=== PATIENT | male | born 1965 | race Caucasian/White ===

== ENCOUNTER 2020-01-25 11:53 | Emergency (ER) | payer MEDICAID, SELFPAY ==
[2020-01-25 11:55] VITALS: BP 171/99; PULSE 90; RESP 16; TEMP 36.8; O2SAT 98; BMI 30.9
--- NOTE | 2020-01-25 12:27 | HMH.EDGENADL ---
ED Disposition Clinical Impression: Perirectal abscess Disposition: Home, Self-Care Condition on Discharge: Fair Instructions: DI for Anal Abscess Additional Instructions: Continue salt water sits baths. Stop taking Bactrim and start Flagyl and Levaquin. See Dr. Solitario in his office on 01/29/2020. Call Tuesday to schedule an appointment. Return to the emergency room if increasingly severe pain, fever greater than 100 degrees. Percocet as needed for pain. Stool softener as prescribed. Additional instructions for CONTROLLED SUBSTANCES: You have been prescribed a medication that is a controlled substance. Controlled substances include pain medications known as opiates and sedative nerve medications known as benzodiazepines. Tramadol, fioricet, and gabapentin are also controlled substances. Some common opiates include: Codeine (such as Tylenol #3) Hydrocodone (Vicodin, Lortab, Lorcet, [place]) Oxycodone (Percocet, Percodan, Oxycodone, Oxy IR) Some common benzodiazepines include: Diazepam (Valium) Lorazepam (Ativan) Alprazolam (Xanax) Clonazepam (Klonopin) Oxazepam (Serax) All of these controlled substances are highly addictive and frequently abused. Misuse can and frequently does lead to addiction as well as overdose and . Medication should be stored in a locked cabinet or other secure storage unit. Do not store the medication in a motor vehicle. Short term supplies, 3 days or less, are prescribed because of the highly addictive nature of the medication. Any of the controlled substance medication NOT taken should be disposed of properly and NOT SAVED. The recommended method of disposing of unused medications is: Place the medicines in a sealable plastic bag. If the medicine is a solid, crush it or add water to dissolve it. Add something undesirable (cat litter, coffee grounds, etc.) Dispose of sealed bag in household trash Do not flush or pour unused medicines down a sink or drain. Controlled substances should not be shared, given away or sold. Because of the addictive nature and frequent abuse, these medications are sometimes stolen. These medications should be kept in a safe place where they cannot be stolen. Do not keep them in your car or purse. Lost or stolen prescriptions for controlled substances WILL NOT BE REFILLED in this emergency department, regardless of whether a police report was filed. Prescriptions: Oxycodone HCl/Acetaminophen [Percocet 5/325mg tablet] 1 tab PO Q6HP PRN #10 tab PRN Reason: Moderate To Severe Pain Transmission Status: Received by [id number] metroNIDAZOLE [Flagyl] 500 mg PO TID #30 tab Transmission Status: Received by [id number] levoFLOXacin [Levaquin 500mg tab] 500 mg PO DAILY #10 tab Transmission Status: Received by [id number] Referrals: Ginette Jara [Primary Care Provider] - Mehrdad Solitario MD [Staff Physician] - - Critical Care Critical Care Time: No Attestation: On 01/25/20, the high probability of a clinically significant, sudden or life threatening deterioration of the following system(s) required my full and direct attention, intervention and personal management. The time I documented below is in addition to time spent performing reported procedures but includes the following listed in this critical care notation. Medical Decision Making - Sudarshan Inquiry Pt receiving controlled substance: Yes Sudarshan was queried for this patient: Yes Reference #:: [id number] Risks and benefits of using a controlled substance: were discussed with pt by me Comment: 1 rx for 12 percocet 10/23/19 Vital Signs: 01/25/20 11:55 01/25/20 13:50 Temperature 98.2 F 98.2 F Temperature Source Oral Oral Pulse Rate 70 Pulse Rate [Right] 90 Respiratory Rate 16 16 Blood Pressure 168/70 H Blood Pressure [Right Arm] 171/99 H Blood Pressure Mean [Right Arm] 123 Blood Pressure Source Automatic Cuff Blood Pressur
--- NOTE | 2020-01-25 12:36 | PC.NURSE ---
Dr. Solitario paged
[2020-01-25 13:50] VITALS: BP 168/70; PULSE 70; RESP 16; TEMP 36.8; O2SAT 98
== END 2020-01-25 13:53 | disposition home or self-care (01) ==
PROVIDERS: Emergency Provider Emergency Medicine; PCP Family Medicine
DX: K61.1 Rectal abscess (principal)
CPT/HCPCS: 99281

== ENCOUNTER → 2020-01-29 14:04 | Outpatient (CLI) | payer MEDICAID, SELFPAY ==
[2020-01-29 14:30] LABS: Basophils % 0.5 % (0.1-2.0); Eosinophils # 0.2 K/mm3 (0.0-0.4); Eosinophils % 2.6 % (0.1-12.0); Hematocrit 45.9 % (42.0-52.0); Hemoglobin 15.8 g/dL (14.1-18.0); Lymphocytes # 1.6 K/mm3 (0.7-4.5); Lymphocytes % 20.4 % (10-50); Mean Corpuscular HGB Conc 34.4 g/dL (31.8-35.4); Mean Corpuscular Hemoglobin 31.4 pg (27.0-31.2); Mean Platelet Volume 8.5 fl (7.4-10.4); Monocytes # 0.3 K/mm3 (0.1-1.0); Monocytes % 3.5 % (1.7-9.3); Neutrophils # 5.7 K/mm3 (1.8-7.8); Platelet Count 291 K/mm3 (142-424); Red Blood Count 5.04 M/mm3 (4.60-6.20); Red Cell Distribution Width 13.6 % (11.5-17.5); White Blood Count 7.8 K/mm3 (4.8-10.8)
[2020-01-29 15:08] LABS: Anion Gap 13.4 mEq/L (5-15); Blood Urea Nitrogen 13 mg/dl (9-20); Calcium 9.1 mg/dl (8.4-10.2); Carbon Dioxide 27 mmol/L (22.0-30.0); Chloride 104 mmol/L (98-107); Estimated Glomerular Filt Rate 101 ml/min (>60); GFR (African American) 122 ML/MIN (>60); Glucose 97 mg/dl (74-100); Potassium 4.4 mmoL/L (3.5-5.1); Sodium 140 mmol/L (136-145)
[2020-01-29 17:37] LABS: Coronavirus 19 IgG Antibody Negative (Negative); Coronavirus 19 IgM Antibody Negative (Negative)
== END ==
PROVIDERS: Visit Provider Surgery
DX: Z01.818 Encounter for other preprocedural examination (principal); K61.1 Rectal abscess
CPT/HCPCS: 36415; 80048; 85025; 86328

== ENCOUNTER 2020-01-31 09:41 | Day surgery (SDC) | payer MEDICAID, SELFPAY ==
[2020-01-29 12:40] VITALS: BMI 30.9
[2020-01-31] VITALS (11 sets, daily range): BP systolic 105–136; BP diastolic 64–85; PULSE 63–75; RESP 12–18; TEMP 36.4–36.8; O2SAT 94–97
--- NOTE | 2020-01-31 10:33 | ECG_ITS ---
APPROVED REPORT Exam: Resting ECG HR:69 bpm ECG Measurements Heart Rate 69 AXES DE 184 P 53 QRSd 104 QRS 52 QT 376 T 65 QTc 402 <Conclusion> Normal sinus rhythm Incomplete right bundle branch block Borderline ECG Electronically signed by : Flex Cam, 02/01/2020 07:53:19
--- NOTE | 2020-01-31 10:52 | P.PN_ITS ---
[facility] Anesthesia Checklist - Patient Identification Patient Identification: Arm Band - Structural Data Admitted From: Home Planned Operative Procedure/s: I&D perianal abscess Consent for Planned Operative Procedure(s) Verified: Yes Verified Documents: Surgical Consent, History and Physical - NPO Status Verified Time NPO: 00:00 - Additional verifications Anesthesia Reactions: No Hx Blood Transfusions: No Blood Transfusion Reaction: No - Airway Assessment C-Spine Mobility Assessed: Yes (mp2) TMJ Mobility Assessed: Yes Dentition: Good Dentition - Neurological Assessment Level of Consciousness: Awake, Alert - Anesthesia Plan Anesthesia Risk discussed: Yes Anesthesia Plan: Verified ASA Class: II Anesthesia Type: General [facility] History I have reviewed the patient's past medical history: Yes Medical History: Reports:: Palpitations Denies:: Cancer, Diabetes Mellitus Type 1, Diabetes Mellitus Type 2, Internal Pacemaker, MRSA, Seizures *Have you ever received a pneumonia vaccine?: No *Have you received a flu vaccine this season?: Yes Other Medical History: Denies: Blood Transfusion Reaction Anesthesia experience/problems:: nac Laterality Cases: Left: Arthroscopy Shoulder Other Surgeries: Yes: Other (C7 replacement, Brain surgery). No: Pacemaker Amputation: Yes Fractures: Yes - *Social History Last grade of school completed: 9th or 10th Smoking Status: Current every day smoker Tobacco Type: cigarettes # Packs/Day (cigarettes): 1 #Yrs smoked (if former smoker): 30 Alcohol Intake: current Alcohol Intake Frequency:: a few times a month Substance Use Type: denies use *Occupational Status:: employed Housing: house Household Members: significant other, children *Travel in the last 8 weeks: None Family Hx:: No significant family history
--- NOTE | 2020-01-31 12:57 | P.OP_ITS ---
Date of procedure: 01/31/20 Pre-op Diagnosis:: Left perianal/ischiorectal fossa abscess Post-op Diagnosis:: Same Procedure performed:: Incision and drainage of left perianal/ischiorectal abscess. Surgeon:: Mehrdad Solitario MD PUBLIC HEALTH TRAINING ASSISTANT:: Shaji Bello Anesthesia: LMA Estimated blood loss (mL): 10 Operative findings:: Left perianal/ischiorectal induration with central fluctuance and small amount of drainage. Operative note:: After informed consent was obtained the patient was taken to the operating room and placed in the supine position. General anesthesia with laryngeal mask airway was achieved. The patient was then transferred to the left lateral decubitus position. The perianal/buttock region was prepped and draped in a sterile fashion. After infiltration local anesthetic an elliptical incision was made around the area of central fluctuance along the left ischiorectal region. The underlying cavity was completely evacuated of fluid as a small amount of severely indurated tissue was excised. Wound was packed open with Kerlix after electrocautery was utilized to achieve hemostasis. Entire region including the Curlex packing was then infiltrated with 1% lidocaine. Dressings were applied and the patient was transferred to recovery in stable condition after removal of his laryngeal mask airway. Condition: stable Disposition: PACU Specimens:: None Complications:: no immediate
--- NOTE | 2020-01-31 13:01 | P.PN_ITS ---
[facility] Anesthesia Record Part I Intake, IV Amount: 1,000 Estimated blood loss (mL): 0 Urine output (mL): 0 Blood Pressure: 105/64 SaO2: 94 Pulse Rate: 63 Respiratory Rate: 12 Temperature: 97.5 F Patient is:: Drowsy, Oral/Nasal airway, Stable Stable to PACU at:: 13:00
--- NOTE | 2020-01-31 20:23 | P.PN_ITS ---
[facility] Anesthesia Record Part II Discharge Time: 13:30 Destination: Surgical Day Care (OP Surgery) PACU nurse assessment reviewed?: Yes Patient Condition:: Good Anesthesia Complications:: None Swallowing reflex intact?: Yes Cyanosis?: No Blood Pressure: 126/85 Pulse Rate: 67 Temperature: 97.5 F Mental Status: Alert & Oriented Pain level:: 5 Nausea and/or vomitting:: None Intake, IV Amount: 0
== END 2020-01-31 14:01 | disposition home or self-care (01) ==
LOC: OR 09:42
PROVIDERS: PCP Family Medicine; Visit Provider Surgery
PROC: (CPT 10060; principal; 2020-01-31 11:00)
DX: K61.0 Anal abscess (principal); R00.2 Palpitations; Z79.899 Other long term (current) drug therapy; Z88.6 Allergy status to analgesic agent; Z87.39 Personal history of other diseases of the musculoskeletal system and connective tissue; Z72.0 Tobacco use
CPT/HCPCS: 10060; 93005; 96374; J1335; J2405

== ENCOUNTER 2020-02-03 21:55 | Emergency (ER) | payer MEDICAID, SELFPAY ==
[2020-02-03 22:17] VITALS: BP 112/74; PULSE 75; RESP 14; TEMP 36.9; O2SAT 97; BMI 30.9
[2020-02-03 22:58] VITALS: BP 114/66; PULSE 72; RESP 15; O2SAT 97
[2020-02-03 23:33] VITALS: BP 112/56; PULSE 70; RESP 15; O2SAT 97
--- NOTE | 2020-02-03 23:52 | HMH.EDRECH ---
ED Disposition Clinical Impression: Encounter for wound re-check, Perirectal abscess Disposition: Home, Self-Care Condition on Discharge: Good Additional Instructions: call surg in am for follow up Referrals: Ginette Jara [Primary Care Provider] - - Critical Care Critical Care Time: No Attestation: On 02/03/20, the high probability of a clinically significant, sudden or life threatening deterioration of the following system(s) required my full and direct attention, intervention and personal management. The time I documented below is in addition to time spent performing reported procedures but includes the following listed in this critical care notation. Medical Decision Making - Medical Records Medical records reviewed: Yes: I reviewed the patient's medical records. - Sudarshan Inquiry Pt receiving controlled substance: No Vital Signs: 02/03/20 22:17 02/03/20 22:58 02/03/20 23:33 Temperature 98.4 F Temperature Source Oral Pulse Rate [Right Brachial] 75 72 70 Respiratory Rate 14 15 15 Blood Pressure [Right Arm] 112/74 114/66 112/56 L Blood Pressure Mean [Right Arm] 86 82 74 Blood Pressure Source [Right Arm] Automatic Cuff Automatic Cuff Blood Pressure Position [Right Arm] Sitting Sitting 02 Sat by Pulse Oximetry 97 97 97 Oxygen Delivery Method Room Air Nasal Cannula Room Air - Physician Consults Physician Consulted: lidia Reason -: Pt condition Recheck HPI - General Chief Complaint: Recheck/Abnormal Lab/Rx Stated Complaint: Surg 0813 Left butt cyst .Infecton Time Seen by Provider: 02/03/20 23:45 Mode of Arrival: Ambulatory Source of Information: Patient, Significant Other, Medical Record Limitations: No Limitations Description of Symptoms (Recalled from ER Triage Doc. by RN): Patient reports he had a cyst removed by Dr. Santiago on . Patient reports his has been doing wet to dry dressing changes daily. Patient reports today he has had some increased pain and the noticed some discolored discharged from the sight. Patient has an appt to follow up with Dr. Santiago on Tuesday. - History of Present Illness HPI narrative: recent i/d with daily packing with no fever but more pain and some exudative changes - MD complaint: wound re-check Initial visit (ago): day(s) Initial visit for: abscess Returns today for: wound recheck Symptoms since prior visit: worsening pain, worsening discharge Associated symptoms: none - Related Data Home Medications Medication Instructions Recorded Confirmed levoFLOXacin [Levaquin 500mg 500 mg PO DAILY 01/29/20 01/31/20 tab] metroNIDAZOLE [Flagyl] 500 mg PO TID 01/29/20 01/31/20 Previous Rx's Medication Instructions Recorded Hydrocod/Acet 5/325 mg [[place] 1 - 2 tab PO Q6HP PRN #17 tab 01/31/20 5/325mg tablet] Allergies Allergy/AdvReac Type Severity Reaction Status Date / Time aspirin Allergy Mild Verified 01/31/20 09:59 [facility] History - Hepatitis A Screen Drug use history?: No High risk sexual behaviors?: No History of sexually transmitted infection?: No Currently employed?: No Childcare worker?: No Do you have indoor plumbing?: Yes Do you have electricity?: Yes Attestation statement:: This patient has been screened for Hepatitis A risk factors. I have reviewed the patient's past medical history: Yes Medical History: Reports:: Palpitations Denies:: Cancer, Diabetes Mellitus Type 1, Diabetes Mellitus Type 2, Internal Pacemaker, MRSA, Seizures Other Medical History: Denies: Blood Transfusion Reaction Laterality Cases: Left: Arthroscopy Shoulder Other Surgeries: Yes: Other (C7 replacement, Brain surgery). No: Pacemaker Amputation: Yes Fractures: Yes Comment: L arm, L leg, R hand x 2, B ankles - Social History Smoking Status: Current every day smoker Tobacco Type: cigarettes # Packs/Day (cigarettes): 1 #Yrs smoked (if former smoker): 30 Alcohol Intake: never Alcohol Intake Frequency:: a few times a
[2020-02-04 00:23] VITALS: BP 112/55; PULSE 73; RESP 15; TEMP 36.9; O2SAT 97
== END 2020-02-04 00:41 | disposition home or self-care (01) ==
PROVIDERS: Emergency Provider Emergency Medicine; PCP Family Medicine
DX: K61.1 Rectal abscess (principal)
CPT/HCPCS: 99282

== ENCOUNTER 2020-04-03 18:49 | Emergency (ER) | payer OTHER, SELFPAY ==
[2020-04-03 18:50] VITALS: BP 125/64; PULSE 64; RESP 16; TEMP 36.9; O2SAT 98; BMI 30.9
--- NOTE | 2020-04-03 19:17 | HMH.EDGENADL ---
ED Disposition Condition on Discharge: Good - Critical Care Critical Care Time: No <Franck Schaeffer - Last Filed: 04/03/20 20:14> <Familia Buckley - Last Filed: 04/03/20 21:31> Clinical Impression: Rectal bleeding Disposition: Home, Self-Care Instructions: DI for Gastrointestinal Bleeding Additional Instructions: see dr neves or pcp for gi consult Referrals: Ginette Jara [Primary Care Provider] - Attestation: On 04/03/20, the high probability of a clinically significant, sudden or life threatening deterioration of the following system(s) required my full and direct attention, intervention and personal management. The time I documented below is in addition to time spent performing reported procedures but includes the following listed in this critical care notation. Medical Decision Making - Sudarshan Inquiry Pt receiving controlled substance: No <Franck Schaeffer - Last Filed: 04/03/20 20:14> - Lab Data Lab results reviewed: Yes: I reviewed the patient's lab results. Result diagrams: 04/03/20 20:28 04/03/20 20:28 - CT Data CT Scan: Abdomen, Pelvis Time Received: 21:[address] Reviewed: Yes: I have viewed the radiologist's interpretation Preliminary Findings: Abnormal (nonspecific ) <Familia Buckley - Last Filed: 04/03/20 21:31> Vital Signs: 04/03/20 18:50 Temperature 98.4 F Temperature Source Oral Pulse Rate [Radial] 64 Respiratory Rate 16 Blood Pressure [Right Arm] 125/64 Blood Pressure Mean [Right Arm] 84 Blood Pressure Position [Right Arm] Sitting 02 Sat by Pulse Oximetry 98 Oxygen Delivery Method Room Air - Lab Data Lab Results 04/03/20 20:28: WBC 6.5, RBC 4.84, Hgb 14.8, Hct 43.4, MCV 89.7, MCH 30.5, MCHC 34.0, RDW 13.7, Plt Count 276, MPV 7.9, Neut % (Auto) 57.6, Lymph % (Auto) 29.3, [place] % (Auto) 6.8, Eos % (Auto) 5.3, Baso % (Auto) 1.0, Neut # (Auto) 3.8, Lymph # (Auto) 1.9, [place] # (Auto) 0.5, Eos # (Auto) 0.4, Baso # (Auto) 0.1 04/03/20 20:28: Sodium 141, Potassium 4.0, Chloride 107, Carbon Dioxide 28, Anion Gap 10.0, BUN 17, Creatinine 0.80, Estimated Creat Clear 160, Estimated GFR 101, Est GFR ( Amer) 122, Glucose 108 H, Calcium 8.6, Total Bilirubin 0.4, AST 41, ALT 56, Alkaline Phosphatase 59, Total Protein 6.4, Albumin 3.9, Globulin 2.5, Albumin/Globulin Ratio 1.6 04/03/20 20:29: C-Reactive Protein 3.9, Amylase 47, Lipase 89 04/03/20 20:29: ESR 4 Orders (Tests/Meds): ORDERS Category Date Time Status CT abdomen pelvis wo con Stat Cat Scan 04/03/20 19:38 Taken Medical Decision Narrative: 8:00 PM: At shift change, I have discussed the patient with Dr. Buckley, who will assume care of the patient at this time. I have discussed all clinical information including history, physical and diagnostic study results. Preliminary diagnoses based on information available at this point have been recorded by me. Controlled substance administration and critical care statement are also preliminary, as of the time of handoff. (Franck Schaeffer) General Adult HPI - General Mode of Arrival: Ambulatory Limitations: No Limitations Description of Symptoms (Recalled from ER Triage Doc. by RN): to ed per pvt car with c/o rectal bleeding x 2 today. states blood fills toliet and has had some clots. denies abd pain, nausea, vomiting. <Franck Schaeffer - Last Filed: 04/03/20 20:14> - General Source of Information: Patient, Spouse, Medical Record <Familia Buckley - Last Filed: 04/03/20 21:31> - General Chief complaint: GI Bleed Stated complaint: bleeding from rectum when going to the bathroom Time Seen by Provider: 04/03/20 19:17 - History of Present Illness HPI narrative: The patient has had bright red rectal bleeding twice today, large amount in the toilet. No clots noted. No abdominal pain, no hematemesis. He had surgery on a perirectal abscess on 01/31/[address] Neves. His says that she check to the area today to make sure it was not a problem from his previo
--- NOTE | 2020-04-03 19:38 | CT_ITS ---
PROCEDURE: CT ABDOMEN PELVIS WO CON CLINICAL INDICATION: rectal bleeding COMPARISON: No exams were available for comparison TECHNIQUE: Axial images obtained with sagittal and coronal reformats. All CT scans at the facility use one or more dose reduction, viz: automated exposure control, ma/kV adjustment per patient size (including targeted exams where dose is matched to indication, i.e. head), or iterative reconstruction technique. FINDINGS: The patient refused IV contrast somewhat decreasing the sensitivity of the exam. LOWER THORAX: Atelectatic changes are present in the lung bases. There is a 2 cm thin-walled cyst in the right lower lobe. ABDOMEN & PELVIS: There are 2, 1 cm hypodensities in the left hepatic lobe nonspecific. The spleen, adrenal glands, and pancreas have an unremarkable unenhanced appearance.. There is a 2 mm nonobstructing stone in the lower pole of the right kidney. No hydronephrosis. No ureteral calculi. No intestinal obstruction or free air. Stomach is mildly distended with ingested material. There is a moderate amount of retained colonic feces. No evidence of appendicitis. No evidence of diverticulitis. No acute bony anomalies. There is skin thickening in the left buttock area medially at the gluteal fold with associated subcutaneous linear density extending to the posterior lateral aspect of the rectum. No soft tissue gas is evident. IMPRESSION: 1. Scattered thickening within medial left buttock at the level of the intergluteal fold with associated subcutaneous linear density extending into the left posterolateral aspect of the rectum with minimal surrounding stranding which may be due to postsurgical scar. Cannot exclude underlying inflammation/infection. No drainable fluid collection. 2. Moderate amount of retained colonic feces. 3. Other nonacute findings as described above. 4. Bibasilar atelectasis. Dictated by: Camron Greenfield MD 04/04/2020 08:33 Camron Greenfield MD in [place] 04/04/2020 08:33
[2020-04-03 20:31] LABS: Basophils # 0.1 K/mm3 (0-0.2); Eosinophils # 0.4 K/mm3 (0.0-0.4); Eosinophils % 5.3 % (0.1-12.0); Hematocrit 43.4 % (42.0-52.0); Hemoglobin 14.8 g/dL (14.1-18.0); Lymphocytes # 1.9 K/mm3 (0.7-4.5); Lymphocytes % 29.3 % (10-50); Mean Corpuscular Hemoglobin 30.5 pg (27.0-31.2); Mean Corpuscular Volume 89.7 fl (80-94); Mean Platelet Volume 7.9 fl (7.4-10.4); Monocytes # 0.5 K/mm3 (0.1-1.0); Monocytes % 6.8 % (1.7-9.3); Neutrophils # 3.8 K/mm3 (1.8-7.8); Neutrophils % 57.6 % (37.0-80.0); Platelet Count 276 K/mm3 (142-424); Red Blood Count 4.84 M/mm3 (4.60-6.20); Red Cell Distribution Width 13.7 % (11.5-17.5); White Blood Count 6.5 K/mm3 (4.8-10.8)
[2020-04-03 20:35] LABS: Chloride 107 mmol/L (98-107); Sodium 141 mmol/L (136-145)
[2020-04-03 20:38] LABS: Alanine Aminotransferase 56 U/L (12-78); Albumin Level 3.9 g/dl (3.5-5.0); Albumin/Globulin Ratio 1.6 (1.1-1.8); Alkaline Phosphatase 59 U/L (38-126); Aspartate Amino Transferase 41 U/L (17-59); Bilirubin,Total 0.4 mg/dl (0.2-1.3); Blood Urea Nitrogen 17 mg/dl (9-20); Carbon Dioxide 28 mmol/L (22.0-30.0); Creatinine Clearance Estimated 160 mL/min (50-200); Estimated Glomerular Filt Rate 101 ml/min (>60); GFR (African American) 122 ML/MIN (>60); Globulin 2.5 g/dL (1.3-3.2); Total Protein,Serum 6.4 g/dl (6.3-8.2)
[2020-04-03 20:39] LABS: Calcium 8.6 mg/dl (8.4-10.2); Glucose 108 mg/dl (74-100)
--- NOTE | 2020-04-03 20:41 | PC.NURSE ---
RAD called and stated pt refused IV contrast due to a previous allergic reaction
[2020-04-03 20:47] LABS: Amylase 47 U/L (30-110); Lipase 89 U/L (23-300)
[2020-04-03 20:53] LABS: C-Reactive Protein 3.9 mg/L (0-4)
[2020-04-03 21:14] LABS: Erythrocyte Sedimentation Rate 4 mm/hr (0-20)
[2020-04-03 21:43] VITALS: BP 131/71; PULSE 67; RESP 16; TEMP 36.7; O2SAT 97
== END 2020-04-03 21:45 | disposition home or self-care (01) ==
PROVIDERS: Emergency Medicine; Emergency Provider Emergency Medicine; PCP Family Medicine
DX: K62.5 Hemorrhage of anus and rectum (principal); F17.210 Nicotine dependence, cigarettes, uncomplicated
CPT/HCPCS: 74176; 80053; 82150; 83690; 85025; 85651; 86140; 99282

== ENCOUNTER 2020-04-04 17:23 | Emergency (ER) | payer OTHER, SELFPAY ==
[2020-04-04 17:24] VITALS: BP 116/69; PULSE 70; RESP 18; TEMP 36.9; O2SAT 97; BMI 31.6
[2020-04-04 18:03] LABS: Basophils % 0.5 % (0.1-2.0); Eosinophils # 0.3 K/mm3 (0.0-0.4); Eosinophils % 3.5 % (0.1-12.0); Hematocrit 47.5 % (42.0-52.0); Hemoglobin 15.3 g/dL (14.1-18.0); Lymphocytes # 1.6 K/mm3 (0.7-4.5); Lymphocytes % 19.8 % (10-50); Mean Corpuscular HGB Conc 32.1 g/dL (31.8-35.4); Mean Corpuscular Hemoglobin 29.5 pg (27.0-31.2); Mean Corpuscular Volume 91.8 fl (80-94); Mean Platelet Volume 9.1 fl (7.4-10.4); Monocytes # 0.6 K/mm3 (0.1-1.0); Monocytes % 7.1 % (1.7-9.3); Neutrophils # 5.7 K/mm3 (1.8-7.8); Neutrophils % 69.1 % (37.0-80.0); Platelet Count 293 K/mm3 (142-424); Red Blood Count 5.18 M/mm3 (4.60-6.20); Red Cell Distribution Width 13.8 % (11.5-17.5); White Blood Count 8.2 K/mm3 (4.8-10.8)
[2020-04-04 18:06] LABS: Chloride 105 mmol/L (98-107); Sodium 140 mmol/L (136-145)
[2020-04-04 18:07] LABS: Potassium 3.9 mmoL/L (3.5-5.1)
[2020-04-04 18:09] LABS: Alanine Aminotransferase 61 U/L (12-78); Alkaline Phosphatase 52 U/L (38-126); Amylase 42 U/L (30-110); Anion Gap 12.9 mEq/L (5-15); Aspartate Amino Transferase 42 U/L (17-59); Bilirubin,Total 0.5 mg/dl (0.2-1.3); Blood Urea Nitrogen 14 mg/dl (9-20); Carbon Dioxide 26 mmol/L (22.0-30.0); Creatinine Clearance Estimated 164 mL/min (50-200); Estimated Glomerular Filt Rate 101 ml/min (>60); GFR (African American) 122 ML/MIN (>60); Glucose 101 mg/dl (74-100); Lipase 63 U/L (23-300)
[2020-04-04 18:10] LABS: Albumin/Globulin Ratio 1.5 (1.1-1.8); Globulin 2.7 g/dL (1.3-3.2); Total Protein,Serum 6.7 g/dl (6.3-8.2)
--- NOTE | 2020-04-04 19:14 | PC.NURSE ---
I assisted Dr Recio with a rectal exam on pt, no bleeding noted at this time.
--- NOTE | 2020-04-04 19:19 | HMH.EDGENADL ---
ED Disposition Clinical Impression: Rectal abnormality Disposition: Home, Self-Care Condition on Discharge: Good Instructions: DI for Gastrointestinal Bleeding Additional Instructions: We have checked a rectal exam today and see no acute bleeding; we also checked labs including CBC and CMP and these are completely within normal limits We want to give you reassurance and please follow-up with Dr. Solitario as originally planned on Tuesday Referrals: Ginette Jara [Primary Care Provider] - Time of Disposition: 19:31 - Critical Care Critical Care Time: No Attestation: On 04/04/20, the high probability of a clinically significant, sudden or life threatening deterioration of the following system(s) required my full and direct attention, intervention and personal management. The time I documented below is in addition to time spent performing reported procedures but includes the following listed in this critical care notation. Medical Decision Making - Medical Records Medical records reviewed: Yes: I reviewed the patient's medical records. MR Comment: 54 year old male here with a complaint of rectal bleeding. He states that when he goes to have a BM there is bright red blood and he wanted to get checked. He was seen here yesterday for the same problem and his labs were normal and d/c home and told to f/o with dr solitario, He does have an appointment with dr Solitario on tuesday, 04/09. The original surgery was to I & D of a cyst in the left buttock. We have checked a rectal exam today and see no acute bleeding we also checked labs including CBC and CMP and these are completely within normal limits patient is being given reassurance being advised to follow-up with Dr. Santiago as originally planned on Tuesday - Sudarshan Inquiry Pt receiving controlled substance: No Vital Signs: 04/04/20 17:24 Temperature 98.4 F Temperature Source Oral Pulse Rate [Right] 70 Respiratory Rate 18 Blood Pressure [Right Arm] 116/69 Blood Pressure Mean [Right Arm] 84 02 Sat by Pulse Oximetry 97 - Lab Data Lab results reviewed: Yes: I reviewed the patient's lab results. Lab Results 04/04/20 17:44: WBC 8.2 D, RBC 5.18, Hgb 15.3, Hct 47.5, MCV 91.8, MCH 29.5, MCHC 32.1, RDW 13.8, Plt Count 293, MPV 9.1, Neut % (Auto) 69.1, Lymph % (Auto) 19.8, [place] % (Auto) 7.1, Eos % (Auto) 3.5, Baso % (Auto) 0.5, Neut # (Auto) 5.7, Lymph # (Auto) 1.6, [place] # (Auto) 0.6, Eos # (Auto) 0.3, Baso # (Auto) 0.0 04/04/20 17:44: Sodium 140, Potassium 3.9, Chloride 105, Carbon Dioxide 26, Anion Gap 12.9, BUN 14, Creatinine 0.80, Estimated Creat Clear 164, Estimated GFR 101, Est GFR ( Amer) 122, Glucose 101 H, Calcium 9.0, Total Bilirubin 0.5, AST 42, ALT 61, Alkaline Phosphatase 52, Total Protein 6.7, Albumin 4.0, Globulin 2.7, Albumin/Globulin Ratio 1.5, Amylase 42 D, Lipase 63 Result diagrams: 04/04/20 17:44 04/04/20 17:44 Orders (Tests/Meds): ORDERS Category Date Time Status Occult Blood,Stool Stat Lab 04/04/20 17:37 Ordered General Adult HPI - General Chief complaint: GI Bleed Stated complaint: Bleeding from rectum Time Seen by Provider: 04/04/20 19:00 Mode of Arrival: Ambulatory Source of Information: Patient, Spouse Limitations: No Limitations Description of Symptoms (Recalled from ER Triage Doc. by RN): Pt was seen here yesterday for rectal bleeding and d/c home and told to f/o with dr solitario, pt back here today for increased rectal bleeding and now has abd pain. Pt states the last time he had a BM it was staright blood. - History of Present Illness HPI narrative: 54 year old male here with a complaint of rectal bleeding. He states that when he goes to have a BM there is bright red blood and he wanted to get checked. He was seen here yesterday for the same problem and his labs were normal and d/c home and told to f/o with dr solitario, He does have an appointment with dr Solitario on tuesday, 04/09. The original surgery was to I
[2020-04-04 19:35] VITALS: BP 123/68; PULSE 75; RESP 16; TEMP 36.8; O2SAT 96
== END 2020-04-04 19:39 | disposition home or self-care (01) ==
PROVIDERS: Emergency Provider Emergency Medicine; PCP Family Medicine
DX: K62.5 Hemorrhage of anus and rectum (principal); R00.2 Palpitations; F17.210 Nicotine dependence, cigarettes, uncomplicated
CPT/HCPCS: 80053; 82150; 83690; 85025; 99282

== ENCOUNTER → 2020-04-15 13:35 | Outpatient (CLI) | payer OTHER, SELFPAY ==
[2020-04-15 15:29] LABS: Coronavirus 19 IgG Antibody Negative (Negative); Coronavirus 19 IgM Antibody Negative (Negative)
== END ==
PROVIDERS: Visit Provider Surgery
DX: Z01.818 Encounter for other preprocedural examination (principal); Z12.11 Encounter for screening for malignant neoplasm of colon
CPT/HCPCS: 36415; 86328

== ENCOUNTER 2020-04-17 10:10 | Day surgery (SDC) | payer OTHER, SELFPAY ==
[2020-04-17 10:23] VITALS: BMI 31.6
[2020-04-17 10:24] VITALS: BP 133/74; PULSE 75; RESP 18; TEMP 36.6; O2SAT 96
[2020-04-17 10:51] VITALS: O2SAT 96
--- NOTE | 2020-04-17 11:06 | P.PN_ITS ---
[facility] Anesthesia Checklist - Patient Identification Patient Identification: Arm Band, Verbal (Name & ) - Structural Data Admitted From: Home Planned Operative Procedure/s: Colonoscopy Consent for Planned Operative Procedure(s) Verified: Yes Verified Documents: Surgical Consent, History and Physical - NPO Status Verified Time NPO: 00:00 - Chart Verification Results Verified: CBC, BMP - Additional verifications Anesthesia Reactions: No Hx Blood Transfusions: No Blood Transfusion Reaction: No - Airway Assessment C-Spine Mobility Assessed: Yes (MP 2, TMD 3, facial bleeding) TMJ Mobility Assessed: Yes Dentition: Poor Dentition (missing teeth) - Neurological Assessment Level of Consciousness: Awake, Alert, Appropriate, Follows Commands Hx Seizures: No Numbness or tingling in extremities: No - Anesthesia Plan Anesthesia Risk discussed: Yes Anesthesia Plan: Verified ASA Class: II Anesthesia Type: MAC [facility] History I have reviewed the patient's past medical history: Yes Medical History: Reports:: Palpitations Denies:: Cancer, Diabetes Mellitus Type 1, Diabetes Mellitus Type 2, Internal Pacemaker, MRSA, Seizures *Have you ever received a pneumonia vaccine?: No *Have you received a flu vaccine this season?: No Other Medical History: Denies: Blood Transfusion Reaction Anesthesia experience/problems:: None Laterality Cases: Left: Arthroscopy Shoulder Other Surgeries: Yes: Other. No: Pacemaker Amputation: Yes Fractures: Yes - *Social History Last grade of school completed: 9th or 10th Smoking Status: Current some day smoker Tobacco Type: cigarettes # Packs/Day (cigarettes): 1 #Yrs smoked (if former smoker): 30 Alcohol Intake: never Alcohol Intake Frequency:: a few times a month Substance Use Type: denies use *Occupational Status:: employed Housing: house Household Members: significant other *Travel in the last 8 weeks: None Family Hx:: Cancer, Heart Attack
--- NOTE | 2020-04-17 11:28 | HMH.SCOPE ---
- Procedure: Date: 04/17/20 Patient Date of :: 1965 Procedure Performed:: Colonoscopy with polypectomy Indications:: Blood per rectum Recent incision and drainage ischiorectal fossa abscess Performing Provider:: Mehrdad Solitario MD Referring Provider:: . Sedation:: Monitored anesthesia care Procedure:: After informed consent was obtained the patient was taken to the endoscopy suite. Sedation ensued after the patient was transferred to the left lateral decubitus position. Pulse, blood pressure, and oxygen saturation were monitored throughout the procedure. Digital rectal exam revealed no significant abnormality. The colonoscope was placed in position. The entire colon was evaluated. The colonoscope was carefully removed and the patient was transferred to recovery in stable condition. Please see findings and specimens below for detail. Findings:: Bowel preparation fair to moderate Significant lack of relaxation Minuscule hemorrhoidal cushions with no sign of thrombosis or hemorrhage Adjacent polyps 30 cm Specimens:: Adjacent polyps 30 cm (snare) Recommendations:: Timing of repeat colonoscopy is pending pathology but will likely be around 2 years secondary to slightly-limiting bowel preparation and lack of relaxation. Complications:: No immediate Estimated blood obtained (mL): 1 Comment:: No obvious etiology to explain recent blood per rectum; however, the healing wound secondary to recent incision and drainage of abscess could have been the source.
[2020-04-17 11:30] VITALS: BP 77/45; PULSE 63; RESP 18; TEMP 36.2; O2SAT 94
[2020-04-17 11:40] VITALS: BP 84/47; PULSE 68; RESP 18; O2SAT 94
[2020-04-17 11:52] VITALS: BP 119/76; PULSE 67; RESP 18; O2SAT 95
[2020-04-17 12:06] VITALS: BP 117/80; PULSE 72; RESP 18; O2SAT 95
== END 2020-04-17 12:10 | disposition home or self-care (01) ==
LOC: OUTP 10:12
PROVIDERS: PCP Family Medicine; Visit Provider Surgery
PROC: 0DJD8ZZ Inspection of Lower Intestinal Tract, Via Natural or Artificial Opening Endoscopic (ICD-10-PCS; CPT 45380; principal; 2020-04-17 11:30)
DX: K64.0 First degree hemorrhoids (principal); K63.5 Polyp of colon; K62.5 Hemorrhage of anus and rectum; K63.89 Other specified diseases of intestine; R00.2 Palpitations; Z80.9 Family history of malignant neoplasm, unspecified; Z72.0 Tobacco use; Z87.39 Personal history of other diseases of the musculoskeletal system and connective tissue; Z82.49 Family history of ischemic heart disease and other diseases of the circulatory system
CPT/HCPCS: 45380

== ENCOUNTER 2022-02-13 06:40 | Emergency (ER) | payer OTHER, SELFPAY ==
[2022-02-13 06:42] VITALS: BP 109/62; PULSE 64; RESP 16; TEMP 36.6; O2SAT 98; BMI 31.6
--- NOTE | 2022-02-13 07:16 | PC.NURSE ---
visual acuity lt eye 20/100, rt eye 20/800 without correction
--- NOTE | 2022-02-13 07:38 | PC.NURSE ---
pt refusing ct states I'll just wait to go to the eye doctor
--- NOTE | 2022-02-13 08:11 | HMH.EDEYEP ---
Discharge Plan Disposition Patient Disposition: Home, Self-Care Condition: Good Chief Complaint: Eye Problems Prescriptions Prescriptions: No Action No Known Home Medications Referrals Referrals: Ginette Jara [Primary Care Provider] - Enter time for follow up Activity Restrictions/Add. Instructions Additional Instructions/Restrictions: follow up with [facility] today Clinical Impressions Clinical Impression: Eye foreign body, Corneal FB (foreign body) Instructions Patient Instructions: DI for Corneal Foreign Body-Eye Discharge ED Provider: Jake Grigsby Eye Problem HPI General Chief complaint: Eye Problems Stated complaint: AO 02/12/22 0800 FB right eye Time Seen by Provider: 02/13/22 08:09 Mode of Arrival: Ambulatory Source of Information: Patient Limitations: No Limitations Description of Symptoms (Recalled from ER Triage Doc. 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 c/o photophobia, pain,tearing and redness. states he has irrigated eye at home with no relief of symptoms. cpta tylenol at 5:30am. History of Present Illness HPI Narrative: rt eye metal fb yesterday while grinding chief complaint: eye pain, eye redness and eye injury Onset (ago): day(s) Onset description: sudden Duration: constant Location: right eye Eye Symptoms: burning and redness Place: home Severity: moderate Related Data Home Medications Medication Instructions Recorded Confirmed No Known Home Medications 04/15/20 06/25/20 Allergies Allergy/AdvReac Type Severity Reaction Status Date / Time No Known Allergies Allergy Verified 06/25/20 13:02 PFSH PFSH Social History Smoking Status: Current every day smoker tobacco type: cigarettes packs per day: 1 second hand exposure: Yes alcohol intake: never substance use type: denies use current occupational status: employed household members: significant other housing: house 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 current occupational exposures/hazards: Yes caffeine: Yes ROS Obtained: Yes All systems reviewed & no additional complaints except as documented Physical Exam General General appearance: alert and in no apparent distress Head Head exam: atraumatic and normocephalic Eye Eye exam: Present other (rt conj injected, small black spot rt 10oclock pos, no purulent drainage, perrla, eomi, nml lids, nml left eye) ENT ENT exam: Present normal exam Neck Neck exam: Present normal inspection Respiratory Respiratory exam: Absent respiratory distress, wheezes or stridor Cardiovascular Cardiovascular exam: Absent bradycardia, tachycardia or irregular rhythm Neurological Exam Neurological exam: Present alert, oriented X3 and CN II-XII intact Skin Skin exam: Absent rash Medical Decision Making Sudarshan Inquiry Pt receiving controlled substance: No Vital Signs: 02/13/22 06:42 Temperature 97.9 F Temperature Source Oral Pulse Rate [Radial] 64 Respiratory Rate 16 Blood Pressure [Right Arm] 109/62 L Blood Pressure Mean [Right Arm] 77 Blood Pressure Position [Right Arm] Sitting 02 Sat by Pulse Oximetry 98 Oxygen Delivery Method Room Air Orders (Tests/Meds): ED MEDICATIONS Discontinued Medications Generic Name Dose Route Start Last Admin Trade Name Freq PRN Reason Stop Dose Admin Tetanus/Reduced Diphtheria/Acell Pertussis 0.5 ml 02/13/22 07:08 02/13/22 07:43 Tet/Diphth/Pert-Adult 0.5ml Syringe IM 02/13/22 07:09 0.5 ml .ONCE ONE Administration Tetracaine HCl 2 ml 02/13/22 07:07 02/13/22 07:10 Tetracaine 0.5% Opth Kateryna 15ml OP 02/13/22 07:08 2 drp ONCE ONE Administration ORDERS Category Date Time Status CT orbit BI wo con Stat Cat Scan 02/13/22 07:31 Ordered Medical Decision Narrative: pt agreed to f/u opthamology this morning after ED Procedures
[2022-02-13 08:16] VITALS: BP 109/74; PULSE 78; RESP 16; TEMP 36.6; O2SAT 97
== END 2022-02-13 08:17 | disposition home or self-care (01) ==
PROVIDERS: Emergency Provider Emergency Medicine; PCP Family Medicine
DX: T15.01XA Foreign body in cornea, right eye, initial encounter (principal)
CPT/HCPCS: 90471; 90715; 99283

== ENCOUNTER 2022-09-14 13:29 | Emergency (ER) | payer OTHER, SELFPAY ==
[2022-09-14 14:30] VITALS: BP 0/0; PULSE 70; RESP 20; TEMP 36.7; O2SAT 95; BMI 30.3
--- NOTE | 2022-09-14 14:47 | PC.NURSE ---
Pt stated that he did not want to wait and was going to try and find an eye doctor.
== END 2022-09-14 15:00 | disposition left against medical advice (07) ==
PROVIDERS: Emergency Provider Emergency Medicine; PCP Family Medicine
DX: Z53.21 Procedure and treatment not carried out due to patient leaving prior to being seen by health care provider (principal)
CPT/HCPCS: 99211